=== PATIENT | female | born 1950 | race Caucasian/White ===

== ENCOUNTER 2022-05-27 10:28 | Day surgery (SDC) | payer OTHER ==
[2022-05-26 08:37] LABS: SARS-CoV-2 Antigen Rapid Res Negative (Negative)
[2022-05-27] MEDS ORDERED: Ringers Lactate 1,000 ML IV ONE (10:55)
[2022-05-27] MEDS ORDERED: TRIAMCINOLONE ACETON 40 MG/ML VIAL ONE (12:02)
[2022-05-27] MEDS ORDERED: LIDOCAINE 1% 20 ML MDV ONE (12:02)
[2022-05-27] MEDS ORDERED: LIDOCAINE 2% MPF 5 ML VIAL ONE (12:23)
[2022-05-27] MEDS ORDERED: propofoL 200 MG/20 ML VIAL IV ONE (12:23)
[2022-05-27] MEDS ORDERED: NS 0.9% VIAL 0 ML ONE (12:40)
[2022-05-27 13:40] VITALS: BP 114/69; TEMP 97.5; O2SAT 100
--- NOTE | 2022-05-27 13:52 | RAD REPORT ---
EXAM DESCRIPTION: RAD - Fluoroscopy <1 Hour - 05/27/2022 1:41 pm FINDINGS: Two portable C-arm views were obtained and submitted from a fluoroscopic assisted epidural steroid procedure. Fluoro time was 0.4 minutes. Cumulative dose was 7.66 mGy.
== END 2022-05-27 13:36 | disposition home or self-care (01) ==
LOC: OR 10:28
PROVIDERS: ATTEND Pain Medicine Interventional Pain Medicine
PROC: B01BZZZ Fluoroscopy of Spinal Cord (ICD-10-PCS; 2022-05-27)
PROC: 3E0R3BZ Introduction of Anesthetic Agent into Spinal Canal, Percutaneous Approach (ICD-10-PCS; 2022-05-27)
PROC: 3E0R3BZ Introduction of Anesthetic Agent into Spinal Canal, Percutaneous Approach (ICD-10-PCS; 2022-05-27)
PROC: B01BZZZ Fluoroscopy of Spinal Cord (ICD-10-PCS; 2022-05-27)
PROC: 3E0S33Z Introduction of Anti-inflammatory into Epidural Space, Percutaneous Approach (ICD-10-PCS; principal; 2022-05-27 12:30)
DX: M54.16 Radiculopathy, lumbar region (principal); M54.50 Low back pain, unspecified; M46.1 Sacroiliitis, not elsewhere classified; M70.62 Trochanteric bursitis, left hip; M70.61 Trochanteric bursitis, right hip; M79.10 Myalgia, unspecified site; G89.4 Chronic pain syndrome; Z79.891 Long term (current) use of opiate analgesic; Z20.822 Contact with and (suspected) exposure to COVID-19
CPT/HCPCS: 62323 ×2; 36415; 87811; J2704; J3301; J7120; 76000